=== PATIENT | male | born 1980 | race Caucasian/White ===

== ENCOUNTER 2017-06-18 10:26 | Inpatient (IN) | payer BC, OTHER ==
[~2017-06-18] VITALS: Ht 175.3 cm; Wt 172.0 kg
[~2017-06-18 10:26] MED LIST: MULT-506 PO; OXYC5TAB PO
[2017-06-18] MEDS ORDERED: GI COCKTAIL PO STA (11:14)
[2017-06-18] MEDS ORDERED: SODIUM CHLORIDE 0.9% 1000ML 1,000 ML IV STA (11:14)
[2017-06-18 11:28] LABS: BASO % 0.3 %; BASO ABS # 0.02 K/uL (0-0.2); COMPLETE YES; EOS % 0.8 %; HEMATOCRIT 44.6 % (42-52); IG% 0.4 %; LYMPH % 14.6 %; MEAN CELL VOLUME 82.6 fL (80-100); MEAN CORPUSCULAR HEMOGLOBIN 28.9 pg (25-34); MEAN PLATELET VOLUME 10.6 fL (7.4-10.4); MONO % 9.3 %; NEUT % 74.6 %; PLATELET COUNT 227 K/uL (130-400); WHITE BLOOD COUNT 7.51 K/uL (4.8-10.8)
[2017-06-18 11:33] LABS: URINE APPEARANCE CLEAR (CLEAR); URINE COLOR DK YELLOW; URINE NITRITE NEG (NEG); URINE SPECIFIC GRAVITY 1.023 (1.000-1.030); UROBILINOGEN POS (NEG); ZZUR CULT IF INDIC CLEAN CATCH NO
[2017-06-18 11:44] LABS: MANUAL MICROSCOPIC REQUIRED? NO; REVIEW REQ? NO; URINE BILIRUBIN NEG (NEG)
[2017-06-18 11:49] LABS: BLOOD UREA NITROGEN 15 mg/dl (7-18); BUN/CREATININE RATIO 18.2 (10-20); CALCIUM 9.5 mg/dl (8.5-10.1); CARBON DIOXIDE 26 mmol/L (21-32); CHLORIDE 105 mmol/L (98-107); CREATININE 0.83 mg/dl (0.60-1.40); GLUCOSE 99 mg/dl (70-99); POTASSIUM 4.1 mmol/L (3.5-5.1); SODIUM 136 mmol/L (136-145)
[2017-06-18 12:02] LABS: ALB/GLOB RATIO 1.1 (0.9-2); ALKALINE PHOSPHATASE 110 U/L (45-117); ALT/SGPT 1048 U/L (12-78); AST/SGOT 1203 U/L (15-37)
[2017-06-18] MEDS ORDERED: ALUMINUM/MAGNESIUM SUSP 30 ML UDC ONE (12:09)
[2017-06-18] MEDS ORDERED: LIDOCAINE HCL 2% VISC SOLN 20 ML UDC ONE (12:09)
--- NOTE | 2017-06-18 12:27 | DIAGNOSTIC IMAGING REPORT ---
CHEST 1 VW FRONT-NOT PORTABLE CLINICAL HISTORY: RUQ /MID ABDOMINAL PAIN pain COMPARISON STUDY: No previous studies for comparison. FINDINGS: The bones soft tissues and hemidiaphragms are normal. The cardiomediastinal silhouette is normal. The lungs are clear. The pulmonary vasculature is normal. IMPRESSION: Negative chest. The above report was generated using voice recognition software. It may contain grammatical, syntax or spelling errors. Electronically signed by: Jonh Calix M.D. 06/18/2017 12:26 PM Dictated Date/Time: 06/18/2017 12:25 PM
--- NOTE | 2017-06-18 12:57 | DIAGNOSTIC IMAGING REPORT ---
ABDOMINAL ULTRASOUND, RIGHT UPPER QUADRANT HISTORY: RUQ pain, elevated LFTs, hx cholecystectomy. COMPARISON: Abdomen and pelvis CT 06/09/2016. FINDINGS: Pancreas: The pancreatic head and tail are obscured by overlying bowel gas. The remaining portions of the pancreas are within normal limits. Liver: The liver is echogenic consistent with fatty change. Gallbladder: The gallbladder is surgically absent. CBD: 6 mm Right kidney: No hydronephrosis. IMPRESSION: 1. Cholecystectomy. 2. Normal caliber common bile duct. 3. Hepatic steatosis Electronically signed by: Douglas Mathis M.D. 06/18/2017 12:55 PM Dictated Date/Time: 06/18/2017 12:54 PM
[2017-06-18] MEDS ORDERED: HYDROmorphone INJ 0.5 MG/0.5 ML SYR IV STA (13:22)
--- NOTE | 2017-06-18 14:08 | EMERGENCY ROOM VISIT NOTE ---
History First contact with patient: 11:02 Chief Complaint: ABDOMINAL PAIN Stated Complaint: ABD. PAIN, DIFFICULTY BREATHING Nursing Triage Summary: Patient c/o right and mid upper abdominal pain since last night. Denies n/v/d. History of Present Illness The patient is a 37 year old male who presents to the Emergency Room with complaints of abdominal pain which began last night. The patient states that he has had mid and right upper abdominal pain which began last night. He states that the pain was severe last night and caused him to become sweaty. He had difficulty catching his breath associated with the pain. He states that today, the pain has been constant and dull. He rates the discomfort a 5-6/10. He states there is no sharp pain. He took Tums and Gas-X last night with some relief of the pain. He states that last night, the pain felt similar to when he had his gallbladder removed. He had a cholecystectomy one year ago secondary to cholelithiasis. He states that he had spaghetti and sausage for dinner last night. He did not drink any alcohol last night, but does drink occasionally. He denies nausea, vomiting, changes in bowel movements, fevers or chest pain. He reports a history of hypertension and previous appendectomy but denies any other past medical history. Review of Systems A complete 10 point review of systems was reviewed with the patient with pertinent positives and negatives as per history of present illness. All else were negative. Past Medical/Surgical History Medical Problems: (1) Morbid obesity (2) PTSD (post-traumatic stress disorder) Surgical Problems: (1) History of appendectomy (2) History of vasectomy (3) Hx of cholecystectomy Family History Diabetes mellitus Hypertension Kidney disease Social History Smoking Status: Former Smoker Alcohol Use: occasionally Drug Use: none Marital Status: Housing Status: lives with family Occupation Status: employed Current/Historical Medications No Active Prescriptions or Reported Meds Allergies Coded Allergies: No Known Allergies (Unverified , 06/19/16) Physical Exam Vital Signs Date Time Temp Pulse Resp B/P (MAP) Pulse Ox O2 Delivery O2 Flow Rate FiO2 06/18/17 12:16 75 20 161/94 100 Room Air 06/18/17 10:51 36.6 63 20 170/94 97 Room Air Physical Exam VITALS: Vitals are noted on the nurse's note and reviewed by myself. Vital signs stable. GENERAL: This is a 37-year-old obese male, in no acute distress, nondiaphoretic , well-developed well-nourished. HEART: Regular rate and rhythm without murmurs gallops or rubs. LUNGS: Clear to auscultation bilaterally without wheezes, rales or rhonchi. ABDOMEN: Positive bowel sounds x 4. Soft, tenderness to palpation in the epigastric region and right upper quadrant. No guarding or rebound tenderness. Negative Owen sign. NEURO: Patient was alert and oriented to person place and time. Medical Decision & Procedures ER Provider Diagnostic Interpretation: CHEST 1 VW FRONT-NOT PORTABLE FINDINGS: The bones soft tissues and hemidiaphragms are normal. The cardiomediastinal silhouette is normal. The lungs are clear. The pulmonary vasculature is normal. IMPRESSION: Negative chest. ABDOMINAL ULTRASOUND, RIGHT UPPER QUADRANT FINDINGS: Pancreas: The pancreatic head and tail are obscured by overlying bowel gas. The remaining portions of the pancreas are within normal limits. Liver: The liver is echogenic consistent with fatty change. Gallbladder: The gallbladder is surgically absent. CBD: 6 mm Right kidney: No hydronephrosis. IMPRESSION: 1. Cholecystectomy. 2. Normal caliber common bile duct. 3. Hepatic steatosis Laboratory Results 06/18/17 11:15 Red Blood Count 5.40, Mean Corpuscular Volume 82.6, Mean Corpuscular Hemoglobin 28.9, Mean Corpuscular Hemoglobin Concent 35.0, Mean Platelet Volume 10.6, Neutrophils (%) (Auto) 74.6, Lymphocytes (%) (Auto) 14.6, Monocytes (%) (Auto) 9.3, Eosinophils (%) (Auto) 0.8, Basophils (%) (Auto) 0.3, Neutrophils # (Auto) 5.60, Lymphocytes # (Auto) 1.10, Monocytes # (Auto) 0.70, Eosinophils # (Auto) 0.06, Basophils # (Auto) 0.02 06/18/17 11:15 Test 06/18/17 11:00 06/18/17 11:15 Urine Color DK YELLOW Urine Appearance CLEAR (CLEAR) Urine pH 7.0 (4.5-7.5) Urine Specific [place] 1.023 (1.000-1.030) Urine Protein NEG (NEG) Urine Glucose (UA) NEG (NEG) Urine Ketones NEG (NEG) Urine Occult Blood NEG (NEG) Urine Nitrite NEG (NEG) Urine Bilirubin NEG (NEG) Urine Urobilinogen POS (NEG) Urine Leukocyte Esterase NEG (NEG) Urine Opiates Screen NEG (NEG) Urine Methadone, Qualitative NEG (NEG) Urine Barbiturates NEG (NEG) Urine Phencyclidine (PCP) Level NEG (NEG) Ur Amphetamine/Methamphetamine NEG (NEG) MDMA (Ecstasy) Screen NEG (NEG) Urine Benzodiazepines Screen NEG (NEG) Urine Cocaine Metabolite NEG (NEG) Urine Marijuana (THC) NEG (NEG) White Blood Count 7.51 K/uL (4.8-10.8) Red Blood Count 5.40 M/uL (4.7-6.1) Hemoglobin 15.6 g/dL (14.0-18.0) Hematocrit 44.6 % (42-52) Mean Corpuscular Volume 82.6 fL (80-100) Mean Corpuscular Hemoglobin 28.9 pg (25-34) Mean Corpuscular Hemoglobin Concent 35.0 g/dl (32-36) Platelet Count 227 K/uL (130-400) Mean Platelet Volume 10.6 fL (7.4-10.4) Neutrophils (%) (Auto) 74.6 % Lymphocytes (%) (Auto) 14.6 % Monocytes (%) (Auto) 9.3 % Eosinophils (%) (Auto) 0.8 % Basophils (%) (Auto) 0.3 % Neutrophils # (Auto) 5.60 K/uL (1.4-6.5) Lymphocytes # (Auto) 1.10 K/uL (1.2-3.4) Monocytes # (Auto) 0.70 K/uL (0.11-0.59) Eosinophils # (Auto) 0.06 K/uL (0-0.5) Basophils # (Auto) 0.02 K/uL (0-0.2) RDW Standard Deviation 41.0 fL (36.4-46.3) RDW Coefficient of Variation 13.7 % (11.5-14.5) Immature Granulocyte % (Auto) 0.4 % Immature Granulocyte # (Auto) 0.03 K/uL (0.00-0.02) Anion Gap 5.0 mmol/L (3-11) Est Creatinine Clear Calc Drug Dose 194.0 ml/min Estimated GFR () 132.1 Estimated GFR (Non- 114.0 BUN/Creatinine Ratio 18.2 (10-20) Calcium Level 9.5 mg/dl (8.5-10.1) Total Bilirubin 4.0 mg/dl (0.2-1) Aspartate Amino Transf (AST/SGOT) 1203 U/L (15-37) Alanine Aminotransferase (ALT/SGPT) 1048 U/L (12-78) Alkaline Phosphatase 110 U/L (45-117) Troponin I < 0.015 ng/ml (0-0.045) Total Protein 7.8 gm/dl (6.4-8.2) Albumin 4.0 gm/dl (3.4-5.0) Globulin 3.8 gm/dl (2.5-4.0) Albumin/Globulin Ratio 1.1 (0.9-2) Lipase 134 U/L (73-393) Medications Administered Medications (Trade) Dose Ordered Sig/Huyen Route Start Time Stop Time Status Last Admin Dose Admin Sodium Chloride 1,000 ml @ 999 mls/hr Q1H1M STAT IV 06/18/17 11:14 06/18/17 12:14 DC 06/18/17 11:20 999 MLS/HR Lidocaine HCl (Viscous Lidocaine 2% Soln) 20 ml STK-MED ONCE .ROUTE 06/18/17 12:09 06/18/17 12:10 DC 06/18/17 12:13 10 ML Al Hydroxide/Mg Hydroxide (Maalox Susp) 30 ml STK-MED ONCE .ROUTE 06/18/17 12:09 06/18/17 12:10 DC 06/18/17 12:12 30 ML Hydromorphone HCl (Dilaudid Inj) 0.5 mg NOW STAT IV 06/18/17 13:22 06/18/17 13:23 DC 06/18/17 13:57 0.5 MG ECG Rate (beats per minute): 61 Rhythm: normal sinus Findings: no acute ischemic change, no ectopy Change: no significant change ED Course The patient was evaluated as above. Labs were drawn and IV access was obtained. Patient was medicated with 1 L normal saline solution and a GI cocktail. Imaging studies were performed and read by radiology as above. Patient was reevaluated and findings were discussed with the patient. He agrees to admission. He requested something more for pain and was given 0.5 mg Dilaudid IV. Case was discussed with the [facility], AMANDA Da Silva. She agreed to evaluate the patient for admission. Medical Decision Differential diagnosis includes peptic ulcer disease, gastritis, choledocholithiasis, hepatitis, pancreatitis, bowel obstruction, among others. The patient is a 37-year-old male who presents today complaining of right upper quadrant and epigastric abdominal pain. Labs revealed no leukocytosis. Bilirubin was significantly elevated at 4.0. AST was elevated at 1203, ALT elevated at 1048. These are new findings for the patient. He has no history of hepatitis. Lipase is normal. Ultrasound of the right upper quadrant was performed and showed a normal common bile duct and no other acute abnormalities. Patient will return her admission to rule out choledocholithiasis versus other cause of elevated LFTs. He was agreeable to this. He will be admitted by the [facility] service for further evaluation. Blood Pressure Screening: Patient was found to have a slightly elevated blood pressure due to circumstances. I do not believe that the patient requires hypertension monitoring. Medication reconciliation: I attest that I have personally reviewed the patient 's current medication list. Impression Primary Impression: RUQ abdominal pain Additional Impression: Elevated LFTs Departure Information Dispostion Admitted as an inpatient Condition GOOD Prescriptions No Active Prescriptions or Reported Meds Referrals Robert Strauss M.D. (PCP) Patient Instructions [facility] Problem Qualifiers
--- NOTE | 2017-06-18 14:42 | Gastrointestinal Consultation ---
Gastrointestinal Consultation Date of Consultation: Jun 18, 2017 Attending Physician: AMANDA Da Silva Consulting Physician: Vincent Arechiga Reason for Consultation: Elevated LFTs History of Present Illness Patient is a 37 year old male w hx of PTSD, hepatic steatosis, bone cyst, morbid obesity who presented to ED w c/o RUQ abd pain which started last night 2 hrs after eating dinner. He was having sausage and spaghetti, felt RUQ abd pain, though he had indigestion and took TUMS. Pain similar to when he had gallbladder disease. He is 1 yr s/p cholecystectomy. He denies any associated symptoms of fever, chills, CP, SOB though felt he couldn't take a deep breath as this may aggravate the RUQ abd pain. Denies any n/v, changes in BM habits. + increased swelling on lower legs, denies any jaundice, rashes, tick bites. Upon eval, labs showed elevated Tbili of 4, AST/ALT 1200, 1000, AP 121, normal Lipase. RUQ u/s showed s/p cholecystectomy, CBD 6mm, hepatic steatosis, CXR normal. He only takes MVI on daily basis, denies any other dietary supplements. No recently travel, dietary changes, sick contact. Denies regular APAP uses. Quit tobacco years ago, drinks about 3-6oz of whiskey daily, hx of marijuana years ago, hx of Hep C sexual partner. Past Medical/Surgical History Medical Problems: (1) Acute abdominal pain in right upper quadrant Status: Acute (2) RUQ abdominal pain Status: Acute Past Medical History: See above Past Surgical History: Appendectomy Vasectomy Cholecystectomy Family History Diabetes mellitus Hypertension Kidney disease Social History Smoking Status: Former Smoker Alcohol Use: occasionally Drug Use: none Marital Status: Housing Status: lives with family Occupation Status: employed Allergies Coded Allergies: No Known Allergies (Unverified , 06/19/16) Current Medications Home Meds and Scripts Medications Dose Route/Sig Max Daily Dose Days Date Category No Active Prescriptions or Reported Medications Rx Review of Systems Constitutional: No fever, No chills Respiratory: No cough, No shortness of breath Cardiac: No chest pain Abdomen: + pain, No nausea, No vomiting, No diarrhea, No constipation, No GI bleeding Endo: No fatigue Skin: No rash, No itch, No jaundice Physical Exam Date Time Temp Pulse Resp B/P (MAP) Pulse Ox O2 Delivery O2 Flow Rate FiO2 06/18/17 13:59 62 20 145/91 100 Room Air 06/18/17 12:16 75 20 161/94 100 Room Air 06/18/17 10:51 36.6 63 20 170/94 97 Room Air General Appearance: no apparent distress, + obese Eyes: normal inspection, EOMI Neck: supple, no JVD, trachea midline Respiratory/Chest: normal breath sounds, no respiratory distress, no accessory muscle use Cardiovascular: regular rate, rhythm, no gallop, no murmur Abdomen: normal bowel sounds, non tender (mild discomfort w deep palpation of abd on RUQ area per pt.), soft Extremities: normal inspection, no calf tenderness, + swelling (mild lower leg non pitting edema ) Neurologic/Psych: alert, normal mood/affect, oriented x 3 Skin: normal color, no jaundice, no rash Laboratory Results Last 24 Hours Test 06/18/17 11:00 06/18/17 11:15 06/18/17 13:54 06/18/17 13:58 Urine Color DK YELLOW Urine Appearance CLEAR Urine pH 7.0 Urine Specific [place] 1.023 Urine Protein NEG Urine Glucose (UA) NEG Urine Ketones NEG Urine Occult Blood NEG Urine Nitrite NEG Urine Bilirubin NEG Urine Urobilinogen POS Urine Leukocyte Esterase NEG White Blood Count 7.51 K/uL Red Blood Count 5.40 M/uL Hemoglobin 15.6 g/dL Hematocrit 44.6 % Mean Corpuscular Volume 82.6 fL Mean Corpuscular Hemoglobin 28.9 pg Mean Corpuscular Hemoglobin Concent 35.0 g/dl Platelet Count 227 K/uL Mean Platelet Volume 10.6 fL Neutrophils (%) (Auto) 74.6 % Lymphocytes (%) (Auto) 14.6 % Monocytes (%) (Auto) 9.3 % Eosinophils (%) (Auto) 0.8 % Basophils (%) (Auto) 0.3 % Neutrophils # (Auto) 5.60 K/uL Lymphocytes # (Auto) 1.10 K/uL Monocytes # (Auto) 0.70 K/uL Eosinophils # (Auto) 0.06 K/uL Basophils # (Auto) 0.02 K/uL RDW Standard Deviation 41.0 fL RDW Coefficient of Variation 13.7 % Immature Granulocyte % (Auto) 0.4 % Immature Granulocyte # (Auto) 0.03 K/uL Sodium Level 136 mmol/L Potassium Level 4.1 mmol/L Chloride Level 105 mmol/L Carbon Dioxide Level 26 mmol/L Anion Gap 5.0 mmol/L Blood Urea Nitrogen 15 mg/dl Creatinine 0.83 mg/dl Est Creatinine Clear Calc Drug Dose 194.0 ml/min Estimated GFR () 132.1 Estimated GFR (Non- 114.0 BUN/Creatinine Ratio 18.2 Random Glucose 99 mg/dl Calcium Level 9.5 mg/dl Total Bilirubin 4.0 mg/dl Aspartate Amino Transf (AST/SGOT) 1203 U/L Alanine Aminotransferase (ALT/SGPT) 1048 U/L Alkaline Phosphatase 110 U/L Troponin I < 0.015 ng/ml Total Protein 7.8 gm/dl Albumin 4.0 gm/dl Globulin 3.8 gm/dl Albumin/Globulin Ratio 1.1 Lipase 134 U/L Impression Patient is a 37 year old male w RUQ abd pain last night 2 hrs after dinner. Hx of cholecystectomy 1 yr ago. LFTs noted to be elevated, specifically Tbili 4, transaminases in 1000s, normal AP, lipase. U/S grossly unremarkable w CBD mm, + hepatic steatosis. DDx: acute vs viral hepatitis, biliary stone, ETOH hepatitis. Plan - Obtain MRCP but suspect less likely has choledocholithiasis given s/p cholecystectomy, normal AP, CBD - Urine toxicology w APAP level - Acute hepatitis level. Add EBV and CMV screens. - AILYN,, anti smooth muscle antibody - Monitor LFTs. Addendum: Will keep pt NPO today and after midnight for possible EUS/ERCP tomorrow w Dr. Goss in OR. Case tenatively booked as an add on case for 2PM on 06/19. ATtg add: I interviewed and examined pt, reviewed chart and labs. Pt s/p marcela , prv bnl LFT's, morbid obesity and regular etoh ue, now admit with abrupt onset of RUQ pain similar to prior GB attack, labs show markedly elevated transaminases and bili; uls without stones. Histroy suggestive of stone disease. Ddx includes DILI, although he denies any medications/supplements; AIH ; viral hep, although pt denies prodromal symptoms. Plan MRCP, and possible EUS /ERCP or liver bx pending results of further w/u.
[2017-06-18 14:47] LABS: BENZODIAZEPINE, URINE NEG (NEG); COCAINE,URINE NEG (NEG); PHENCYCLIDINE, URINE NEG (NEG)
[2017-06-18] MEDS ORDERED: LORAZEPAM 2 MG/ML 1 ML VIAL IV ONE (15:00)
[2017-06-18 15:13] LABS: PROTHROMBIN TIME (PATIENT) 10.6 SECONDS (9.0-12.0)
--- NOTE | 2017-06-18 16:10 | History and Physical ---
History & Physical Date & Time of Service: Jun 18, 2017 ~ 13:30 Chief Complaint: RUQ Abdominal Pain Primary Care Physician: Robert Strauss M.D. History of Present Illness Source: patient 37 year old male who presents to the ER with RUQ pain. Patient reports pain come on suddenly last evening. He reports the pain as located in the RUQ and describes it as an ache. He took some OTC antacids last night and got minimal relief. He reports a normal bowel movement yesterday. He denies nausea, vomiting , or diarrhea. No fevers or chills. He feels as though his abdomen is a little more distended and he has lower extremity edema. The abdominal distention makes him feel a little short of breath with exertion. No chest pain. Patient does drink alcohol. He reports heavy alcohol use for 10 years, cut back for about 1 year, and for the past 2 weeks has been having 2-3 drinks per night. He reports having a girlfriend several years ago that was Hep C positive. He denies any recent travel or sick contacts. He denies lightheadedness, dizziness, diaphoresis, or syncopal events. He reports his urine has been much darker in color today. No dysuria. In the ER, patient was found to have elevated LFTs (t. bili 4.0, AST and ALT > 1,000, and normal alk phos). RUQ US unremarkable. Patient was treated with IVF, GI cocktail, and IV Dilaudid. Past Medical/Surgical History Medical Problems: (1) Morbid obesity Status: Chronic (2) PTSD (post-traumatic stress disorder) Status: Chronic Surgical Problems: (1) History of appendectomy Status: Chronic (2) History of vasectomy Status: Chronic (3) Hx of cholecystectomy Status: Chronic Family History Hypertension MOTHER Social History Smoking Status: Former Smoker Alcohol Use: 2-3 drinks/night Drug Use: none Marital Status: Occupational Status: employed Immunizations History of Influenza Vaccine: Yes Influenza Vaccine Date: Sep 20, 2016 History of Tetanus Vaccine?: Yes Tetanus Immunization Date: Nov 02, 2012 Allergies Coded Allergies: No Known Allergies (Unverified , 06/19/16) Home Medications No Active Prescriptions or Reported Meds Review of Systems ROS per HPI, all other systems reviewed and negative Physical Exam Vital Signs Date Time Temp Pulse Resp B/P (MAP) Pulse Ox O2 Delivery O2 Flow Rate FiO2 06/18/17 13:59 62 20 145/91 100 Room Air 06/18/17 12:16 75 20 161/94 100 Room Air 06/18/17 10:51 36.6 63 20 170/94 97 Room Air General Appearance: no apparent distress Head: normocephalic Eyes: normal inspection, sclerae normal ENT: hearing grossly normal Neck: supple, no JVD Respiratory/Chest: lungs clear, normal breath sounds, no respiratory distress Cardiovascular: regular rate, rhythm, normal peripheral pulses, + pertinent finding (trace edema BLLE) Abdomen/GI: normal bowel sounds, soft, + pertinent finding (reports RUQ pain however not worse with palpation) Extremities/Musculoskelatal: normal inspection, no calf tenderness Neurologic/Psych: no motor/sensory deficits, alert, normal mood/affect, oriented x 3 Skin: normal color, warm/dry Diagnostics Laboratory Results Results Past 24 Hours Test 06/18/17 11:00 06/18/17 11:15 06/18/17 14:39 06/18/17 14:40 Range/Units Urine Color DK YELLOW Urine Appearance CLEAR CLEAR Urine pH 7.0 4.5-7.5 Urine Specific [place] 1.023 1.000-1.030 Urine Protein NEG NEG Urine Glucose (UA) NEG NEG Urine Ketones NEG NEG Urine Occult Blood NEG NEG Urine Nitrite NEG NEG Urine Bilirubin NEG NEG Urine Urobilinogen POS NEG Urine Leukocyte Esterase NEG NEG Urine Opiates Screen NEG NEG Urine Methadone, Qualitative NEG NEG Urine Barbiturates NEG NEG Urine Phencyclidine (PCP) Level NEG NEG Ur Amphetamine/Methamphetamine NEG NEG MDMA (Ecstasy) Screen NEG NEG Urine Benzodiazepines Screen NEG NEG Urine Cocaine Metabolite NEG NEG Urine Marijuana (THC) NEG NEG White Blood Count 7.51 4.8-10.8 K/uL Red Blood Count 5.40 4.7-6.1 M/uL Hemoglobin 15.6 14.0-18.0 g/dL Hematocrit 44.6 42-52 % Mean Corpuscular Volume 82.6 80-100 fL Mean Corpuscular Hemoglobin 28.9 25-34 pg Mean Corpuscular Hemoglobin Concent 35.0 32-36 g/dl Platelet Count 227 130-400 K/uL Mean Platelet Volume 10.6 7.4-10.4 fL Neutrophils (%) (Auto) 74.6 % Lymphocytes (%) (Auto) 14.6 % Monocytes (%) (Auto) 9.3 % Eosinophils (%) (Auto) 0.8 % Basophils (%) (Auto) 0.3 % Neutrophils # (Auto) 5.60 1.4-6.5 K/uL Lymphocytes # (Auto) 1.10 1.2-3.4 K/uL Monocytes # (Auto) 0.70 0.11-0.59 K/uL Eosinophils # (Auto) 0.06 0-0.5 K/uL Basophils # (Auto) 0.02 0-0.2 K/uL RDW Standard Deviation 41.0 36.4-46.3 fL RDW Coefficient of Variation 13.7 11.5-14.5 % Immature Granulocyte % (Auto) 0.4 % Immature Granulocyte # (Auto) 0.03 0.00-0.02 K/uL Sodium Level 136 136-145 mmol/L Potassium Level 4.1 3.5-5.1 mmol/L Chloride Level 105 98-107 mmol/L Carbon Dioxide Level 26 21-32 mmol/L Anion Gap 5.0 3-11 mmol/L Blood Urea Nitrogen 15 7-18 mg/dl Creatinine 0.83 0.60-1.40 mg/dl Est Creatinine Clear Calc Drug Dose 194.0 ml/min Estimated GFR () 132.1 Estimated GFR (Non- 114.0 BUN/Creatinine Ratio 18.2 10-20 Random Glucose 99 70-99 mg/dl Calcium Level 9.5 8.5-10.1 mg/dl Total Bilirubin 4.0 0.2-1 mg/dl Aspartate Amino Transf (AST/SGOT) 1203 15-37 U/L Alanine Aminotransferase (ALT/SGPT) 1048 12-78 U/L Alkaline Phosphatase 110 45-117 U/L Troponin I < 0.015 0-0.045 ng/ml Total Protein 7.8 6.4-8.2 gm/dl Albumin 4.0 3.4-5.0 gm/dl Globulin 3.8 2.5-4.0 gm/dl Albumin/Globulin Ratio 1.1 0.9-2 Lipase 134 73-393 U/L Prothrombin Time 10.6 9.0-12.0 SECONDS Prothromb Time International Ratio 1.0 0.9-1.1 Activated Partial Thromboplast Time 25.6 21.0-31.0 SECONDS Partial Thromboplastin Ratio 1.0 Ethyl Alcohol mg/dL < 3.0 0-3 mg/dl Hepatitis B Surface Antigen NEG NEG Test 06/18/17 14:42 Range/Units Diagnostic Radiology RUQ US IMPRESSION: 1. Cholecystectomy. 2. Normal caliber common bile duct. 3. Hepatic steatosis CXR IMPRESSION: Negative chest. Impression Assessment and Plan ELEVATED LFTs - admit to med/surg - patient presenting with RUQ pain x 1 day; in the ED, found to have T. bili 4.0, AST 1203, ALT 1048, alk phos 110; other labs unremarkable - patient is s/p cholecystectomy 06/2016 - RUQ US in ED unremarkable - choledocholithiasis would be considered less likely due to normal CBD on US, normal alk phos, and hx cholecystectomy however, due to sudden onset of pain, will check MRCP - also consider alcoholic hepatitis - normal coags and low DF so no role for steroids at this time; noted normal lipase - hepatitis panel and UDS ordered - NPO for now - case discussed with AMANDA Najera ALCOHOL ABUSE - patient reports heavy ETOH use for 10 years, cut back for about 1 year, and started drinking daily about 2 weeks ago (2-3 drinks/night) - ETOH level normal - monitor for signs of withdrawal - no problems with withdrawal in the past DVT PROPHYLAXIS - SCDs DISPO - In my clinical judgment this beneficiary meets acute admission criteria, established by [facility], that includes being hospitalized through two midnights. Attending Note: Patient is a 37 yr male with no significant PMH other than Alcohol abuse presents with history of sudden onset of RUQ abdominal pain, constant, non radiating, denies any association with food intake and no relief with OTC pain meds. Denies nausea, vomiting, diarrhea, fever, chills. Had cholecystectomy about 1 yr ago. Admits to drinking Whisky (2-3 drinks) daily. Blood work showed transaminitis but USD of abdomen showed hepatic steatosis. Physical Exam: Vitals signs as noted above General Appearance:Obese, no apparent distress Head: normocephalic, Atraumatic Eyes: normal inspection, EOMI, PERRL Neck: supple, Trachea midline Respiratory/Chest: Normal breath sounds, CTA Cardiovascular: S1, S2, No murmur Abdomen/GI:Soft, Non tender, Bowel sounds present Extremities/Musculoskelatal:normal inspection, no edema Neurologic/Psych:AAOX3, grossly no focal neurological deficits Skin:normal color,warm Assessment and Plan: RUQ Abdominal pain Transaminitis: S/P cholecystectomy 06/2016 Unclear etiology Abdominal USD:hepatic steatosis Planned for MRCP today GI consulted Pain control IV fluids Hepatitis screen pending Lipase:wnl I personally reviewed the record. Patient is interviewed and examined at bedside. Patient's care is coordinated with Whit Ovalle [facility]. Please refer to the documentation above for details of patient's presentation and for discussion of other issues. VTE Prophylaxis VTE Risk Assessment Done? Y/N: Yes Risk Level: Moderate
[2017-06-18 17:00] VITALS: BP 145/98; PULSE 65; TEMP 36.8; O2SAT 98; Ht 175.3 cm; Wt 172.0 kg
--- NOTE | 2017-06-18 17:19 | Anesthesiology Progress Note ---
Anesthesia Progress Note Date of Service Jun 18, 2017. Progress Notes Pt is scheduled for EUS/ERCP on 06/02/17. Pt is a 37M with morbid obesity, GAYE, PTSD, heavy ETOH use, former smoker, ?hep C. Pt has good functional status. Labwork, EKG and CXR were reviewed. Pt is an acceptable candidate for general anesthesia. History and consent were obtained by the TRIPPER.
[2017-06-18] MEDS: D5W AND NSS 1,000 ML IV SCH (18:19)
[2017-06-18] MEDS: MoRPHine SULFATE 4 MG/ML 1 ML CARP\\VIAL IV PRN (18:19)
[2017-06-18] MEDS: ONDANSETRON INJ 2 MG/ML 2 ML VIAL IV PRN (21:18)
[2017-06-18] MEDS ORDERED: LORAZEPAM INJ 1 MG in SYRINGE 0.5 ML IV SCH (23:00)
[2017-06-19 01:13] VITALS: BP 120/75; PULSE 66; TEMP 36.9; O2SAT 95
[2017-06-19] MEDS: MoRPHine SULFATE 4 MG/ML 1 ML CARP\\VIAL IV PRN ×3 (01:21→22:37)
[2017-06-19] MEDS: D5W AND NSS 1,000 ML IV SCH (04:16)
--- NOTE | 2017-06-19 06:48 | DIAGNOSTIC IMAGING REPORT ---
MRCP CLINICAL HISTORY: Right upper quadrant abdominal pain. Elevated LFTs. COMPARISON STUDY: Biliary ultrasound dated 06/18/2017 FINDINGS: Spleen is borderline enlarged. The gallbladder surgically absent. The common bile duct measures 5 mm. The intrahepatic ducts are the upper limits of normal in size. No ductal filling defects are visualized. There is no pancreatic ductal dilatation. IMPRESSION: 1. No evidence of significant pancreatic or biliary ductal dilatation 2. There are no filling defects to indicate ductal calculi 3. Surgically absent gallbladder Electronically signed by: Jesús Ty M.D. 06/19/2017 6:47 AM Dictated Date/Time: 06/19/2017 6:44 AM
[2017-06-19] MEDS ORDERED: INDOMETHACIN 50 MG SUPP PR ONE ×2 (07:00→15:00)
[2017-06-19 07:19] VITALS: BP 106/71; PULSE 59; TEMP 36.6; O2SAT 96
[2017-06-19] MEDS: ONDANSETRON INJ 2 MG/ML 2 ML VIAL IV PRN ×2 (08:37→22:36)
--- NOTE | 2017-06-19 10:58 | DIAGNOSTIC IMAGING REPORT ---
DUPLEX ULTRASOUND PORTAL HEPATIC VEINS CLINICAL HISTORY: Assess for portal vein thrombosis. COMPARISON STUDY: MRCP 06/19/2017. FINDINGS: The portal, hepatic, and splenic veins are widely patent and demonstrate normal direction of flow. The IVC is also patent. IMPRESSION: No evidence for portal vein thrombosis. Electronically signed by: Douglas Mathis M.D. 06/19/2017 10:56 AM Dictated Date/Time: 06/19/2017 10:55 AM
--- NOTE | 2017-06-19 11:08 | Gastroenterology Progress Note ---
Progress Note Date of Service: Jun 19, 2017 Subjective Pt evaluation today including: conversation w/ patient, physical exam, chart review, lab review, review of studies, review of inpatient medication list Patient is a 37 year old male who was admitted yesterday with RUQ pain ( continues and is described as similar to when he underwent cholecystectomy a yr ago) and nausea. He appears well, is hemodynamically stable, describes continued RUQ pain and is "hungry." LFTs on arrival: Tbili of 4, AST/ALT 1200, 1000, AP 121, normal Lipase. LFTs today increasing: T Binu 6.8, dir 3.6; AST/ALT 733/1142 AP 130, no leukocytosis. Imaging: RUQ u/s showed s/p cholecystectomy, CBD 6mm, hepatic steatosis, CXR normal. MRCP with normal CBD at 5mm, no filling defects. Port vein doppler US pending. Hep B/C (-); [place] (-), other serology pending. Review of Systems Constitutional: No fever Respiratory: No cough Cardiac: No chest pain Abdomen: + pain, + nausea, No vomiting, No diarrhea, No constipation, No GI bleeding, No dysphagia, No odynophagia Musculoskeletal: No joint pain Male : No dysuria Neuro: No memory loss Psych: No depression symptoms Heme: No abnormal bleeding/bruising Endo: No fatigue Medications Current Inpatient Medications Medications (Trade) Dose Ordered Sig/Huyen Route Start Time Stop Time Status Last Admin Dose Admin Ondansetron HCl (Zofran Inj) 4 mg Q6H PRN IV 06/18/17 14:00 07/18/17 13:59 06/19/17 08:37 4 MG Morphine Sulfate (MoRPHine SULFATE INJ) 4 mg Q4H PRN IV 06/18/17 14:15 07/02/17 14:14 06/19/17 08:32 4 MG Dextrose/Sodium Chloride 1,000 ml @ 80 mls/hr [id number] IV 06/18/17 15:15 07/18/17 15:14 06/19/17 04:16 80 MLS/HR Objective Vital Signs Date Time Temp Pulse Resp B/P (MAP) Pulse Ox O2 Delivery O2 Flow Rate FiO2 06/19/17 08:00 Room Air 06/19/17 07:19 36.6 59 20 106/71 (83) 96 Room Air 06/19/17 01:13 36.9 66 18 120/75 (90) 95 Room Air 06/19/17 00:00 Room Air 06/18/17 17:00 36.8 65 16 145/98 98 Room Air 06/18/17 16:05 62 16 131/80 98 Room Air 06/18/17 13:59 62 20 145/91 100 Room Air 06/18/17 12:16 75 20 161/94 100 Room Air Physical Exam General Appearance: no apparent distress, + obese Neck: thyroid normal, no JVD Respiratory/Chest: lungs clear Cardiovascular: regular rate, rhythm, no JVD, no murmur Abdomen: soft, + tenderness (mild to moderate, RUQ) Extremities: + pertinent finding (trace bilat pedal edema) Neurologic/Psych: alert, normal mood/affect, oriented x 3 Skin: + jaundice (mild) Laboratory Results Last 24 Hours Test 06/18/17 11:00 06/18/17 11:15 06/18/17 14:39 06/18/17 14:40 Urine Color DK YELLOW Urine Appearance CLEAR Urine pH 7.0 Urine Specific [place] 1.023 Urine Protein NEG Urine Glucose (UA) NEG Urine Ketones NEG Urine Occult Blood NEG Urine Nitrite NEG Urine Bilirubin NEG Urine Urobilinogen POS Urine Leukocyte Esterase NEG Urine Opiates Screen NEG Urine Methadone, Qualitative NEG Urine Barbiturates NEG Urine Phencyclidine (PCP) Level NEG Ur Amphetamine/Methamphetamine NEG MDMA (Ecstasy) Screen NEG Urine Benzodiazepines Screen NEG Urine Cocaine Metabolite NEG Urine Marijuana (THC) NEG White Blood Count 7.51 K/uL Red Blood Count 5.40 M/uL Hemoglobin 15.6 g/dL Hematocrit 44.6 % Mean Corpuscular Volume 82.6 fL Mean Corpuscular Hemoglobin 28.9 pg Mean Corpuscular Hemoglobin Concent 35.0 g/dl Platelet Count 227 K/uL Mean Platelet Volume 10.6 fL Neutrophils (%) (Auto) 74.6 % Lymphocytes (%) (Auto) 14.6 % Monocytes (%) (Auto) 9.3 % Eosinophils (%) (Auto) 0.8 % Basophils (%) (Auto) 0.3 % Neutrophils # (Auto) 5.60 K/uL Lymphocytes # (Auto) 1.10 K/uL Monocytes # (Auto) 0.70 K/uL Eosinophils # (Auto) 0.06 K/uL Basophils # (Auto) 0.02 K/uL RDW Standard Deviation 41.0 fL RDW Coefficient of Variation 13.7 % Immature Granulocyte % (Auto) 0.4 % Immature Granulocyte # (Auto) 0.03 K/uL Sodium Level 136 mmol/L Potassium Level 4.1 mmol/L Chloride Level 105 mmol/L Carbon Dioxide Level 26 mmol/L Anion Gap 5.0 mmol/L Blood Urea Nitrogen 15 mg/dl Creatinine 0.83 mg/dl Est Creatinine Clear Calc Drug Dose 194.0 ml/min Estimated GFR () 132.1 Estimated GFR (Non- 114.0 BUN/Creatinine Ratio 18.2 Random Glucose 99 mg/dl Calcium Level 9.5 mg/dl Total Bilirubin 4.0 mg/dl Aspartate Amino Transf (AST/SGOT) 1203 U/L Alanine Aminotransferase (ALT/SGPT) 1048 U/L Alkaline Phosphatase 110 U/L Troponin I < 0.015 ng/ml Total Protein 7.8 gm/dl Albumin 4.0 gm/dl Globulin 3.8 gm/dl Albumin/Globulin Ratio 1.1 Lipase 134 U/L Prothrombin Time 10.6 SECONDS Prothromb Time International Ratio 1.0 Activated Partial Thromboplast Time 25.6 SECONDS Partial Thromboplastin Ratio 1.0 Ethyl Alcohol mg/dL < 3.0 mg/dl Hepatitis B Surface Antigen NEG Hepatitis C Antibody NEG Monoscreen NEG Test 06/19/17 09:04 Total Bilirubin 6.8 mg/dl Direct Bilirubin 3.6 mg/dl Aspartate Amino Transf (AST/SGOT) 733 U/L Alanine Aminotransferase (ALT/SGPT) 1142 U/L Alkaline Phosphatase 130 U/L Total Protein 6.8 gm/dl Albumin 3.5 gm/dl Folate 13.75 ng/mL Assessment and Plan Mr. Alva is a 37 yr old male with RUQ pain, elevated and increasing LFTs, though imaging w/o bile duct abnormalities, hx is strongly suggestive of microlithiasis. Viral etiology is considered but negative thus far and he denies other viral symptoms. No hx of increased alcohol intake. Though obese, and fatty liver on US, would not expect a dramatic transaminitis with non alcoholic fatty liver disease. Plan: 1. Will review portal vein doppler US when available. 2. Will plan for EUS, possible ERCP this afternoon. Attg addendum: I interviewed and examined pt, reviewed chart and labs. Pt with persistent abd pain, requiring morphine this am; he also has increase in bilirubin. MRCP without ductal obstruction, and uls without PVT. Viral serologies pending. His history of abrupt onset of pain, associated with abnl LFT's, seems very suggestive of stone disease. There is no prodrome to suggest viral hep. Will plan EUS with possible ERCP, or liver bx if no ductal obstruction is seen.
--- NOTE | 2017-06-19 14:07 | Endo History and Physical ---
History & Physical Date of Service: Jun 19, 2017. Chief Complaint: Abdominal pain Referring Physician: History of Present Illness Patient presented with ruq pain and a significant elevation of LAES. Referred for EUS and possible ERCP or liver biopsy. Past Medical History Cholelithiasis PTSD Obesity Past Surgical History Hx Cardiac Surgery: No Hx Abdominal Surgery: Yes (Gall bladder removed 2015, Appendix 1989) Hx Post-Op Nausea and Vomiting: No Hx Cancer Surgery: No Hx Thoracic Surgery: No Hx Orthopedic: No Hx Urinary Tract Surgery: Yes (Visectomy 2014) Cholecystectomy (2015) Appendctomy Vasectomy Social History Smoking Status: Light Tobacco Smoker Hx Substance Use: No Hx Alcohol Use: Yes (3 drinks/night) Allergies Coded Allergies: No Known Allergies (Unverified , 06/19/16) Current Medications Reported Home Medications Medications Dose Route/Sig Max Daily Dose Days Date Category No Active Prescriptions or Reported Medications Rx Vital Signs Weight (Kilograms): 172.000 Height (Feet): 5 Height (Inches): 9.00 Date Time Temp Pulse Resp B/P (MAP) Pulse Ox O2 Delivery O2 Flow Rate FiO2 06/19/17 08:00 Room Air 06/19/17 07:19 36.6 59 20 106/71 (83) 96 Room Air 06/19/17 01:13 36.9 66 18 120/75 (90) 95 Room Air 06/19/17 00:00 Room Air 06/18/17 17:00 36.8 65 16 145/98 98 Room Air 06/18/17 16:05 62 16 131/80 98 Room Air Physical Exam General Appearance: no apparent distress Respiratory/Chest: Auscultation: breath sounds normal Cardiovascular: Heart Auscultation: RRR Abdomen: Inspection & Palpation: soft, RUQ tenderness Assessment and Plan Patient referred for eus with possible liver biopsy or ERCP. He presented with ruq pain s/p cholecystectomy 1 year ago for cholelithiasis. We have discussed the risks to include bleeding, infection, perforation, pain, pancreatitis, failed biliary cannulation and hematoma Plan EGD EUS ERCP Indocin 100 mg if ERCP performed LR 1 liter during procedure
[2017-06-19] MEDS ORDERED: PROPOFOL IV EMULSION 10 MG/ML 20 ML VIAL IV ONE (14:29)
[2017-06-19] MEDS ORDERED: MIDAZOLAM HCL 1 MG/ML 2ML VIAL ONE (14:29)
[2017-06-19] MEDS ORDERED: LIDOCAINE HCL 2% 2 ML VIAL (20MG/ML) ONE (14:29)
[2017-06-19] MEDS ORDERED: FENTANYL CITRATE INJ 50 MCG/1 ML 2 ML VIAL ONE (14:29)
[2017-06-19] MEDS ORDERED: SUCCINYLCHOLINE CHLORIDE 20 MG/ML 10 ML VIAL IV ONE (14:29)
[2017-06-19] MEDS ORDERED: ROCURONIUM BROMIDE 10 MG/ML 5 ML VIAL IV ONE (14:29)
--- NOTE | 2017-06-19 14:59 | GI REPORT ---
Procedure Date: 06/19/2017 2:28 PM Procedure: Upper GI endoscopy Indications: Epigastric abdominal pain Medicines: General Anesthesia Complications: No immediate complications. Estimated blood loss: Minimal. Estimated Blood Loss: Estimated blood loss was minimal. Procedure: Pre-Anesthesia Assessment: - Prior to the procedure, a History and Physical was performed, and patient medications, allergies and sensitivities were reviewed. The patient's tolerance of previous anesthesia was reviewed. - ASA Grade Assessment: II - A patient with mild systemic disease. - The anesthesia plan was to use general anesthesia. - Pre-procedure physical examination revealed no contraindications to sedation. - After reviewing the risks and benefits, the patient was deemed in satisfactory condition to undergo the procedure. - Immediately prior to administration of medications, the patient was re-assessed for adequacy to receive sedatives. - The heart rate, respiratory rate, oxygen saturations, blood pressure, adequacy of pulmonary ventilation, and response to care were monitored throughout the procedure. - The physical status of the patient was re-assessed after the procedure. - The risks and benefits of the procedure and the sedation options and risks were discussed with the patient. All questions were answered and informed consent was obtained. - Patient identification and proposed procedure were verified prior to the procedure by the physician, the nurse and the supervisor display fabrication. The procedure was verified in the procedure room. After obtaining informed consent, the endoscope was passed under direct vision. Throughout the procedure, the patient's blood pressure, pulse, and oxygen saturations were monitored continuously. The scope was introduced through the mouth, and advanced to the third part of duodenum. The upper GI endoscopy was accomplished without difficulty. The patient tolerated the procedure well. Findings: The examined esophagus was normal. The Z-line was regular and was found 35 cm from the incisors. The entire examined stomach was normal. The examined duodenum was normal. Impression: - Normal esophagus. - Z-line regular, 35 cm from the incisors. - Normal stomach. - Normal examined duodenum. - No specimens collected. Recommendation: - Perform an upper endoscopic ultrasound (UEUS) today. Ayaan Goss D.O. Ayaan Goss DO 06/19/2017 2:58:38 PM This report has been signed electronically. Note Initiated On: 06/19/2017 2:28 PM I attest to the content of the Intraoperative Record and orders documented therein, exceptions below
--- NOTE | 2017-06-19 15:41 | GI REPORT ---
Procedure Date: 06/19/2017 3:14 PM Procedure: ERCP Indications: Abdominal pain of suspected biliary origin, Abnormal endoscopic ultrasound of the biliary system, Jaundice Medicines: General Anesthesia, Indocin 100 mg [place] Complications: No immediate complications. Estimated blood loss: Minimal. Estimated Blood Loss: Estimated blood loss was minimal. Procedure: Pre-Anesthesia Assessment: - Prior to the procedure, a History and Physical was performed, and patient medications, allergies and sensitivities were reviewed. The patient's tolerance of previous anesthesia was reviewed. - The risks and benefits of the procedure and the sedation options and risks were discussed with the patient. All questions were answered and informed consent was obtained. - Patient identification and proposed procedure were verified prior to the procedure by the physician, the nurse and the tool supervisor. The procedure was verified in the procedure room. - Pre-procedure physical examination revealed no contraindications to sedation. - ASA Grade Assessment: III - A patient with severe systemic disease. - After reviewing the risks and benefits, the patient was deemed in satisfactory condition to undergo the procedure. - The anesthesia plan was to use general anesthesia. - Immediately prior to administration of medications, the patient was re-assessed for adequacy to receive sedatives. - The heart rate, respiratory rate, oxygen saturations, blood pressure, adequacy of pulmonary ventilation, and response to care were monitored throughout the procedure. - The physical status of the patient was re-assessed after the procedure. After obtaining informed consent, the scope was passed under direct vision. Throughout the procedure, the patient's blood pressure, pulse, and oxygen saturations were monitored continuously. The Scope was introduced through the mouth, and advanced to the duodenum and used to inject contrast into the bile duct. The ERCP was accomplished without difficulty. The patient tolerated the procedure well. Findings: A software tools developer film of the abdomen was obtained. Surgical clips, consistent with previous cholecystectomy, were seen in the area of the right upper quadrant of the abdomen. The esophagus was successfully intubated under direct vision without detailed examination of the pharynx, larynx, and associated structures, and upper GI tract. The upper GI tract was grossly normal. The major papilla was normal. The bile duct was deeply cannulated with the short-nosed traction sphincterotome (Omni 35) and 0.035 in Acrobat guidewire during the initial cannulation attempt. Contrast was injected. I personally interpreted the bile duct images. Contrast extended to the hepatic ducts. A cholecystectomy had been performed. The biliary orifice was stenotic. This appeared benign. The lower third of the main bile duct contained filling defect(s) thought to be a stone and sludge. Biliary sphincterotomy was made with a monofilament short-tip traction sphincterotome using ERBE electrocautery. There was no post-sphincterotomy bleeding. To discover objects, the biliary tree was swept with a 8.5 mm to15 mm balloon starting at the distal common bile duct working up to the bifurcation over several sweeps. Sludge was swept from the duct. Three small green pigmented stones were removed. No stones remained on occlusion cholangiogram. The endoscope was withdrawn from the patient. The total fluoroscopy exposure time was 1 minute and 41 seconds. Impression: - The major papilla appeared normal. - The patient has had a cholecystectomy. - Biliary papillary stenosis, benign. - A filling defect consistent with a stone and sludge was seen on the cholangiogram. - A sphincterotomy was performed. - The biliary tree was swept. - Choledocholithiasis was found. Complete removal was accomplished by biliary sphincterotomy and balloon extraction. Recommendation: - Avoid aspirin and nonsteroidal anti-inflammatory medicines for 1 week. - Clear liquid diet today. - Observe patient's clinical course following today's ERCP with therapeutic intervention. - Repeat CMP in am to continue Liver enzyme trend. - Repeat ERCP PRN for retreatment. Ayaan Goss D.O. Ayaan Goss, 06/19/2017 3:40:59 PM This report has been signed electronically. Note Initiated On: 06/19/2017 3:14 PM I attest to the content of the Intraoperative Record and orders documented therein, exceptions below
--- NOTE | 2017-06-19 15:45 | GI REPORT ---
Procedure Date: 06/19/2017 2:58 PM Procedure: Upper EUS Indications: Abnormal liver function test, Suspected choledocholithiasis, Abdominal pain in the right upper quadrant Medicines: General Anesthesia Complications: No immediate complications. Estimated blood loss: Minimal. Estimated Blood Loss: Estimated blood loss was minimal. Procedure: Pre-Anesthesia Assessment: - Prior to the procedure, a History and Physical was performed, and patient medications, allergies and sensitivities were reviewed. The patient's tolerance of previous anesthesia was reviewed. - The risks and benefits of the procedure and the sedation options and risks were discussed with the patient. All questions were answered and informed consent was obtained. - Patient identification and proposed procedure were verified prior to the procedure by the physician, the nurse and the product support analyst. The procedure was verified in the procedure room. - Pre-procedure physical examination revealed no contraindications to sedation. - ASA Grade Assessment: III - A patient with severe systemic disease. - After reviewing the risks and benefits, the patient was deemed in satisfactory condition to undergo the procedure. - After reviewing the risks and benefits, the patient was deemed in satisfactory condition to undergo the procedure. - The anesthesia plan was to use general anesthesia. - Immediately prior to administration of medications, the patient was re-assessed for adequacy to receive sedatives. - The heart rate, respiratory rate, oxygen saturations, blood pressure, adequacy of pulmonary ventilation, and response to care were monitored throughout the procedure. - The physical status of the patient was re-assessed after the procedure. After obtaining informed consent, the endoscope was passed under direct vision. Throughout the procedure, the patient's blood pressure, pulse, and oxygen saturations were monitored continuously. The Endosonoscope was introduced through the mouth, and advanced to the second part of duodenum. The upper EUS was accomplished without difficulty. The patient tolerated the procedure well. Findings: Endosonographic Finding : There was no sign of significant endosonographic abnormality in the ampulla. No masses were identified. Evidence of a previous cholecystectomy was identified endosonographically. One stone was visualized endosonographically in the lower third of the main bile duct. The stone measured 5 mm in greatest dimension. It was hyperechoic and characterized by shadowing. The CBD was 6 mm in diameter. There was diffuse abnormal echotexture in the entire examined liver. This was characterized by a hyperechoic appearance. There was no sign of significant endosonographic abnormality in the entire pancreas. No masses. No lymph nodes were seen during endosonographic examination in the celiac region (level 20). Two benign lymph nodes were visualized in the leighton hepatis region. The largest measured 12 mm by 18 mm in maximal cross-sectional diameter. The nodes were triangular, hypoechoic and had poorly defined margins. There was no sign of significant endosonographic abnormality in the left adrenal gland. No adrenal gland enlargement was identified. Impression: - Normal ampulla. - Evidence of a cholecystectomy. - One stone was visualized endosonographically in the lower third of the main bile duct. - Fatty infiltration of the liver. - Normal pancreas. - Two benign lymph nodes were visualized in the leighton hepatis region. Recommendation: - Perform an ERCP today. Ayaan Goss D.O. Ayaan Goss DO 06/19/2017 3:44:02 PM This report has been signed electronically. Note Initiated On: 06/19/2017 2:58 PM I attest to the content of the Intraoperative Record and orders documented therein, exceptions below
--- NOTE | 2017-06-19 15:49 | [facility] Post Operative Brief Note ---
Immediate Operative Summary Operative Date Jun 19, 2017. Pre-Operative Diagnosis Elevated Liver Tests Post-Operative Diagnosis Gallstones Procedure(s) Performed Endoscopic Ultrasonography; Endoscopic Retrograde Cholangiopancreatogram Surgeon Dr. Ayaan Goss Leacher Surgeon(s) None Estimated Blood Loss 0ml Findings Normal EGD Gallstones seen on EUS / ERCP in the CBD Specimens None Drains None Anesthesia General Complication(s) None Disposition Recovery Room / PACU
--- NOTE | 2017-06-19 15:50 | DIAGNOSTIC IMAGING REPORT ---
ERCP BILIARY DUCTAL CLINICAL HISTORY: right upper quadrant abdominal pain. COMPARISON STUDY: MRCP 06/19/2017. FLUOROSCOPY TIME: 1 minute and 41 seconds. 17 images submitted. FINDINGS: There is an endoscope at the second portion of the duodenum. The ampulla is cannulated and contrast was injected into the common bile duct. The common bile duct appears to be normal in course and caliber. A balloon sweep was performed. Prior cholecystectomy. IMPRESSION: Fluoroscopy provided for ERCP. Electronically signed by: Douglas Mathis M.D. 06/19/2017 3:49 PM Dictated Date/Time: 06/19/2017 3:47 PM
[2017-06-19] MEDS ORDERED: DEXAMETHASONE SOD INJ 4 MG/ML VIAL ONE (15:56)
[2017-06-19] MEDS ORDERED: ONDANSETRON INJ 2 MG/ML 2 ML VIAL ONE (15:56)
[2017-06-19] MEDS ORDERED: ATROPINE SULFATE 0.1 MG/ML 5ML SYR IV PRN (16:15)
[2017-06-19] MEDS ORDERED: FENTANYL CITRATE INJ 50 MCG/1 ML 2 ML VIAL IV PRN (16:15)
[2017-06-19] MEDS ORDERED: LABETALOL HCL IV 5 MG/ML 20ML IV PRN (16:15)
[2017-06-19] MEDS ORDERED: EpHEDrine SULFATE INJ 50 MG/ML AMP IV PRN (16:15)
[2017-06-19] MEDS ORDERED: HYDROmorphone INJ 1 MG/ML SYR IV PRN (16:15)
[2017-06-19] MEDS ORDERED: ONDANSETRON INJ 2 MG/ML 2 ML VIAL IV PRN (16:15)
[2017-06-19] MEDS ORDERED: MEPERIDINE HCL 25 MG/ML CARP IV PRN (16:15)
--- NOTE | 2017-06-19 16:32 | Anesthesiology Progress Note ---
Anesthesia Post Op Note Date & Time Jun 19, 2017 at 16:31 Vital Signs Pain Intensity: 0 Vital Signs Past 12 Hours Date Time Temp Pulse Resp B/P (MAP) Pulse Ox O2 Delivery O2 Flow Rate FiO2 06/19/17 16:25 154/84 06/19/17 16:23 64 14 98 06/19/17 16:23 64 14 06/19/17 16:20 153/84 06/19/17 16:18 68 13 06/19/17 16:18 68 13 98 06/19/17 16:15 144/86 06/19/17 16:13 66 13 06/19/17 16:13 65 13 98 06/19/17 16:10 160/83 06/19/17 16:08 71 14 98 06/19/17 16:08 69 14 06/19/17 16:06 36.7 72 20 144/86 (107) 99 Mask 2 06/19/17 16:05 173/87 06/19/17 16:03 63 16 06/19/17 16:03 64 16 97 06/19/17 16:00 166/79 06/19/17 15:58 71 14 06/19/17 15:58 76 14 100 06/19/17 15:57 67 15 06/19/17 15:57 66 15 100 06/19/17 15:55 158/80 06/19/17 15:52 76 21 99 06/19/17 15:52 76 21 06/19/17 15:50 171/80 06/19/17 15:47 81 19 163/88 100 06/19/17 15:47 80 19 06/19/17 15:47 36.5 80 18 163/88 (99) 100 Mask 10 06/19/17 08:00 Room Air 06/19/17 07:19 36.6 59 20 106/71 (83) 96 Room Air Notes Mental Status: alert / awake / arousable, participated in evaluation Pt Amnestic to Procedure: Yes Nausea / Vomiting: adequately controlled Pain: adequately controlled Airway Patency, RR, SpO2: stable & adequate BP & HR: stable & adequate Hydration State: stable & adequate Anesthetic Complications: no major complications apparent
[2017-06-19 16:41] VITALS: BP 149/83; PULSE 70; TEMP 36.7; O2SAT 93
[2017-06-19] MEDS ORDERED: LACTATED RINGER'S 1000ML 1,000 ML IV SCH (16:45)
--- NOTE | 2017-06-19 16:46 | Progress Note ---
Internal Med Progress Note Date of Service: Jun 19, 2017. Provider Documentation: SUBJECTIVE: Seen and examined at bedside. Had Endoscopic Ultrasonography; ERCP today Reports heartburn Denies chest pain, SOB Family at bedside. OBJECTIVE: Vital Signs-as noted below Exam: General Appearance:Obese, no apparent distress Head: normocephalic, Atraumatic Eyes: normal inspection, EOMI, PERRL Neck: supple, Trachea midline Respiratory/Chest: Normal breath sounds, CTA Cardiovascular: S1, S2, No murmur Abdomen/GI:Soft, Non tender, Bowel sounds present Extremities/Musculoskelatal:normal inspection, no edema Neurologic/Psych:AAOX3, grossly no focal neurological deficits Skin:normal color,warm Lab data as noted below. ASSESSMENT & PLAN: Choledocholithiasis S/P biliary sphincterotomy and balloon extraction PO D # o Abdominal USD:hepatic steatosis Appreciate GI help Pain control IV fluids Clear liquid diet Monitor LFTs Hepatitis screen pending Lipase:wnl Avoid ASA, NSAIDs for 1 week Alcohol abuse disorder ETOH level normal monitor for DTs no problems with withdrawal in the past Continue thiamine, Folic acid GERD Started on PPI DVT Px: SCDs DISPOSITION: Plan to discharge home when stable PROCEDURES: Endoscopic USD: Impression: - Normal ampulla. - Evidence of a cholecystectomy. - One stone was visualized endosonographically in the lower third of the main bile duct. - Fatty infiltration of the liver. - Normal pancreas. - Two benign lymph nodes were visualized in the leighton hepatis region. Recommendation: - Perform an ERCP today. ERCP: Impression: - The major papilla appeared normal. - The patient has had a cholecystectomy. - Biliary papillary stenosis, benign. - A filling defect consistent with a stone and sludge was seen on the cholangiogram. - A sphincterotomy was performed. - The biliary tree was swept. - Choledocholithiasis was found. Complete removal was accomplished by biliary sphincterotomy and balloon extraction. Recommendation: - Avoid aspirin and nonsteroidal anti-inflammatory medicines for 1 week. - Clear liquid diet today. - Observe patient's clinical course following today's ERCP with therapeutic intervention. - Repeat CMP in am to continue Liver enzyme trend. - Repeat ERCP PRN for retreatment. Vital Signs: Date Time Temp Pulse Resp B/P (MAP) Pulse Ox O2 Delivery O2 Flow Rate FiO2 06/19/17 17:19 36.8 74 16 138/76 (96) 93 06/19/17 16:52 36.7 70 16 141/92 (108) 95 Room Air 06/19/17 16:41 36.7 70 18 149/83 (105) 93 Nasal Cannula 2.0 06/19/17 16:25 154/84 06/19/17 16:23 64 14 98 06/19/17 16:23 64 14 06/19/17 16:20 153/84 06/19/17 16:18 68 13 06/19/17 16:18 68 13 98 06/19/17 16:15 144/86 06/19/17 16:13 66 13 06/19/17 16:13 65 13 98 06/19/17 16:10 160/83 06/19/17 16:08 71 14 98 06/19/17 16:08 69 14 06/19/17 16:06 36.7 72 20 144/86 (107) 99 Mask 2 06/19/17 16:05 173/87 06/19/17 16:03 63 16 06/19/17 16:03 64 16 97 06/19/17 16:00 166/79 06/19/17 15:58 71 14 06/19/17 15:58 76 14 100 06/19/17 15:57 67 15 06/19/17 15:57 66 15 100 06/19/17 15:55 158/80 06/19/17 15:52 76 21 99 06/19/17 15:52 76 21 06/19/17 15:50 171/80 06/19/17 15:47 81 19 163/88 100 06/19/17 15:47 80 19 06/19/17 15:47 36.5 80 18 163/88 (99) 100 Mask 10 06/19/17 08:00 Room Air 06/19/17 07:19 36.6 59 20 106/71 (83) 96 Room Air 06/19/17 01:13 36.9 66 18 120/75 (90) 95 Room Air 06/19/17 00:00 Room Air Lab Results: Results Past 24 Hours Test 06/19/17 09:04 Range/Units Total Bilirubin 6.8 0.2-1 mg/dl Direct Bilirubin 3.6 0-0.2 mg/dl Aspartate Amino Transf (AST/SGOT) 733 15-37 U/L Alanine Aminotransferase (ALT/SGPT) 1142 12-78 U/L Alkaline Phosphatase 130 45-117 U/L Total Protein 6.8 6.4-8.2 gm/dl Albumin 3.5 3.4-5.0 gm/dl Folate 13.75 >5.38 ng/mL
[2017-06-19 16:52] VITALS: BP 141/92; PULSE 70; TEMP 36.7; O2SAT 95
[2017-06-19 17:19] VITALS: BP 138/76; PULSE 74; TEMP 36.8; O2SAT 93
[2017-06-19] MEDS ORDERED: PANTOprazole SOD 40 MG TAB PO ONE (17:30)
[2017-06-19] MEDS: LACTATED RINGER'S 1000ML 1,000 ML IV SCH (18:30)
[2017-06-19 18:31] VITALS: BP 127/73; PULSE 83; O2SAT 93
[2017-06-20] VITALS: O2SAT 93
[2017-06-20 00:06] VITALS: BP 133/72; PULSE 81; TEMP 36.8; O2SAT 94
[2017-06-20] MEDS: LACTATED RINGER'S 1000ML 1,000 ML IV SCH (04:35)
[2017-06-20 07:13] VITALS: BP 141/83; PULSE 58; TEMP 36.3; O2SAT 100
[2017-06-20 08:07] LABS: BUN/CREATININE RATIO 10.3 (10-20); CALCIUM 8.8 mg/dl (8.5-10.1); CREATININE 0.78 mg/dl (0.60-1.40)
[2017-06-20 08:08] LABS: ALB/GLOB RATIO 0.9 (0.9-2)
[2017-06-20 08:25] LABS: BASO % 0.1 %; BASO ABS # 0.01 K/uL (0-0.2); COMPLETE YES; HEMATOCRIT 42.4 % (42-52); IG% 0.5 %; LYMPH % 10.3 %; LYMPH ABS # 0.97 K/uL (1.2-3.4); MEAN CELL VOLUME 86.4 fL (80-100); MEAN CORPUSCULAR HEMOGLOBIN 28.3 pg (25-34); MEAN CORPUSCULAR HGB CONC 32.8 g/dl (32-36); MEAN PLATELET VOLUME 11.1 fL (7.4-10.4); MONO % 5.8 %; NEUT % 83.3 %; PLATELET COUNT 211 K/uL (130-400); RED BLOOD COUNT 4.91 M/uL (4.7-6.1); WHITE BLOOD COUNT 9.43 K/uL (4.8-10.8)
[2017-06-20] MEDS ORDERED: PANTOprazole SOD 40 MG TAB PO SCH (09:00)
--- NOTE | 2017-06-20 11:09 | Gastroenterology Progress Note ---
Progress Note Date of Service: Jun 20, 2017 Subjective Pt evaluation today including: conversation w/ patient, conversation w/ family No complaints, feels great, up sitting in chair at bedside Medications Current Inpatient Medications Medications (Trade) Dose Ordered Sig/Huyen Route Start Time Stop Time Status Last Admin Dose Admin Ondansetron HCl (Zofran Inj) 4 mg Q6H PRN IV 06/18/17 14:00 07/18/17 13:59 06/19/17 22:36 4 MG Morphine Sulfate (MoRPHine SULFATE INJ) 4 mg Q4H PRN IV 06/18/17 14:15 07/02/17 14:14 06/19/17 22:37 4 MG Lactated Ringer's 1,000 ml @ 100 mls/hr Q10H IV 06/19/17 17:45 07/19/17 17:44 06/20/17 04:35 100 MLS/HR Pantoprazole Sodium (Protonix Tab) 40 mg QAM PO 06/20/17 09:00 07/20/17 08:59 Objective Vital Signs Date Time Temp Pulse Resp B/P (MAP) Pulse Ox O2 Delivery O2 Flow Rate FiO2 06/20/17 08:00 Room Air 06/20/17 07:13 36.3 58 18 141/83 (102) 100 Room Air 06/20/17 00:06 36.8 81 16 133/72 (92) 94 Room Air 06/20/17 00:00 93 Room Air 06/19/17 18:31 83 18 127/73 (91) 93 Room Air 06/19/17 17:19 36.8 74 16 138/76 (96) 93 06/19/17 16:52 36.7 70 16 141/92 (108) 95 Room Air 06/19/17 16:41 36.7 70 18 149/83 (105) 93 Nasal Cannula 2.0 06/19/17 16:25 154/84 06/19/17 16:23 64 14 98 06/19/17 16:23 64 14 06/19/17 16:20 153/84 06/19/17 16:18 68 13 06/19/17 16:18 68 13 98 06/19/17 16:15 144/86 06/19/17 16:13 66 13 06/19/17 16:13 65 13 98 06/19/17 16:10 160/83 06/19/17 16:08 71 14 98 06/19/17 16:08 69 14 06/19/17 16:06 36.7 72 20 144/86 (107) 99 Mask 2 06/19/17 16:05 173/87 06/19/17 16:03 63 16 06/19/17 16:03 64 16 97 06/19/17 16:00 Room Air 06/19/17 16:00 166/79 06/19/17 15:58 71 14 06/19/17 15:58 76 14 100 06/19/17 15:57 67 15 06/19/17 15:57 66 15 100 06/19/17 15:55 158/80 06/19/17 15:52 76 21 99 06/19/17 15:52 76 21 06/19/17 15:50 171/80 06/19/17 15:47 81 19 163/88 100 06/19/17 15:47 80 19 06/19/17 15:47 36.5 80 18 163/88 (99) 100 Mask 10 Physical Exam General Appearance: WD/WN, no apparent distress ENT: normal ENT inspection Neck: supple Respiratory/Chest: chest non-tender, lungs clear Cardiovascular: regular rate, rhythm, no edema Abdomen: normal bowel sounds Extremities: normal range of motion Neurologic/Psych: surgical garment assembler II-XII nml as tested Laboratory Results Last 24 Hours Test 06/20/17 07:08 White Blood Count 9.43 K/uL Red Blood Count 4.91 M/uL Hemoglobin 13.9 g/dL Hematocrit 42.4 % Mean Corpuscular Volume 86.4 fL Mean Corpuscular Hemoglobin 28.3 pg Mean Corpuscular Hemoglobin Concent 32.8 g/dl Platelet Count 211 K/uL Mean Platelet Volume 11.1 fL Neutrophils (%) (Auto) 83.3 % Lymphocytes (%) (Auto) 10.3 % Monocytes (%) (Auto) 5.8 % Eosinophils (%) (Auto) 0.0 % Basophils (%) (Auto) 0.1 % Neutrophils # (Auto) 7.85 K/uL Lymphocytes # (Auto) 0.97 K/uL Monocytes # (Auto) 0.55 K/uL Eosinophils # (Auto) 0.00 K/uL Basophils # (Auto) 0.01 K/uL RDW Standard Deviation 44.1 fL RDW Coefficient of Variation 14.1 % Immature Granulocyte % (Auto) 0.5 % Immature Granulocyte # (Auto) 0.05 K/uL Sodium Level 139 mmol/L Potassium Level 4.0 mmol/L Chloride Level 106 mmol/L Carbon Dioxide Level 26 mmol/L Anion Gap 7.0 mmol/L Blood Urea Nitrogen 8 mg/dl Creatinine 0.78 mg/dl Est Creatinine Clear Calc Drug Dose 208.0 ml/min Estimated GFR () 135.5 Estimated GFR (Non- 116.9 BUN/Creatinine Ratio 10.3 Random Glucose 113 mg/dl Calcium Level 8.8 mg/dl Total Bilirubin 2.3 mg/dl Aspartate Amino Transf (AST/SGOT) 277 U/L Alanine Aminotransferase (ALT/SGPT) 859 U/L Alkaline Phosphatase 127 U/L Total Protein 7.0 gm/dl Albumin 3.4 gm/dl Globulin 3.6 gm/dl Albumin/Globulin Ratio 0.9 Assessment and Plan 37 yo presenting with elevated liver enzymes and abdominal pain with biliary obstruction from choledocholithiasis -Doing well post ERCP and clearance of bile duct -No signs of complication -Ok for low fat diet, if tolerates can be d/c'd with hospital follow up this week
--- NOTE | 2017-06-20 14:22 | Progress Note ---
Internal Med Progress Note Date of Service: Jun 20, 2017. Provider Documentation: SUBJECTIVE: Seen and examined at bedside. Had Endoscopic Ultrasonography; ERCP yesterday Denies abdominal pain No new complaints Tolerated diet Eager to get discharged Denies chest pain, SOB Family at bedside. OBJECTIVE: Vital Signs-as noted below Exam: General Appearance:Obese, no apparent distress Head: normocephalic, Atraumatic Eyes: normal inspection, EOMI, PERRL Neck: supple, Trachea midline Respiratory/Chest: Normal breath sounds, CTA Cardiovascular: S1, S2, No murmur Abdomen/GI:Soft, Non tender, Bowel sounds present Extremities/Musculoskelatal:normal inspection, no edema Neurologic/Psych:AAOX3, grossly no focal neurological deficits Skin:normal color,warm Lab data as noted below. ASSESSMENT & PLAN: Choledocholithiasis S/P biliary sphincterotomy and balloon extraction POD # 1 Abdominal USD:hepatic steatosis Appreciate GI help Pain control S/P IV fluids Tolerating low fat diet LFTs much improved Hepatitis screen pending Lipase:wnl Avoid ASA, NSAIDs for 1 week Needs follow up with GI as outpatient Alcohol abuse disorder ETOH level normal monitor for DTs no problems with withdrawal in the past Continue thiamine, Folic acid GERD Started on PPI DVT Px: SCDs DISPOSITION: Plan to discharge home today Follow up with Dr. Strauss on 06/25/17 at 10:25AM Follow up with your banana expert in 1 week as advised Seek immediate medical attention if your symptoms reoccur or worsen PROCEDURES: Endoscopic USD: Impression: - Normal ampulla. - Evidence of a cholecystectomy. - One stone was visualized endosonographically in the lower third of the main bile duct. - Fatty infiltration of the liver. - Normal pancreas. - Two benign lymph nodes were visualized in the leighton hepatis region. Recommendation: - Perform an ERCP today. ERCP: Impression: - The major papilla appeared normal. - The patient has had a cholecystectomy. - Biliary papillary stenosis, benign. - A filling defect consistent with a stone and sludge was seen on the cholangiogram. - A sphincterotomy was performed. - The biliary tree was swept. - Choledocholithiasis was found. Complete removal was accomplished by biliary sphincterotomy and balloon extraction. Recommendation: - Avoid aspirin and nonsteroidal anti-inflammatory medicines for 1 week. - Clear liquid diet today. - Observe patient's clinical course following today's ERCP with therapeutic intervention. - Repeat CMP in am to continue Liver enzyme trend. - Repeat ERCP PRN for retreatment. Vital Signs: Date Time Temp Pulse Resp B/P (MAP) Pulse Ox O2 Delivery O2 Flow Rate FiO2 06/20/17 08:00 Room Air 06/20/17 07:13 36.3 58 18 141/83 (102) 100 Room Air 06/20/17 00:06 36.8 81 16 133/72 (92) 94 Room Air 06/20/17 00:00 93 Room Air 06/19/17 18:31 83 18 127/73 (91) 93 Room Air 06/19/17 17:19 36.8 74 16 138/76 (96) 93 06/19/17 16:52 36.7 70 16 141/92 (108) 95 Room Air 06/19/17 16:41 36.7 70 18 149/83 (105) 93 Nasal Cannula 2.0 06/19/17 16:25 154/84 06/19/17 16:23 64 14 98 06/19/17 16:23 64 14 06/19/17 16:20 153/84 06/19/17 16:18 68 13 06/19/17 16:18 68 13 98 06/19/17 16:15 144/86 06/19/17 16:13 66 13 06/19/17 16:13 65 13 98 06/19/17 16:10 160/83 06/19/17 16:08 71 14 98 06/19/17 16:08 69 14 06/19/17 16:06 36.7 72 20 144/86 (107) 99 Mask 2 06/19/17 16:05 173/87 06/19/17 16:03 63 16 06/19/17 16:03 64 16 97 06/19/17 16:00 Room Air 06/19/17 16:00 166/79 06/19/17 15:58 71 14 06/19/17 15:58 76 14 100 06/19/17 15:57 67 15 06/19/17 15:57 66 15 100 06/19/17 15:55 158/80 06/19/17 15:52 76 21 99 06/19/17 15:52 76 21 06/19/17 15:50 171/80 06/19/17 15:47 81 19 163/88 100 06/19/17 15:47 80 19 06/19/17 15:47 36.5 80 18 163/88 (99) 100 Mask 10 Lab Results: Results Past 24 Hours Test 06/20/17 07:08 Range/Units White Blood Count 9.43 4.8-10.8 K/uL Red Blood Count 4.91 4.7-6.1 M/uL Hemoglobin 13.9 14.0-18.0 g/dL Hematocrit 42.4 42-52 % Mean Corpuscular Volume 86.4 80-100 fL Mean Corpuscular Hemoglobin 28.3 25-34 pg Mean Corpuscular Hemoglobin Concent 32.8 32-36 g/dl Platelet Count 211 130-400 K/uL Mean Platelet Volume 11.1 7.4-10.4 fL Neutrophils (%) (Auto) 83.3 % Lymphocytes (%) (Auto) 10.3 % Monocytes (%) (Auto) 5.8 % Eosinophils (%) (Auto) 0.0 % Basophils (%) (Auto) 0.1 % Neutrophils # (Auto) 7.85 1.4-6.5 K/uL Lymphocytes # (Auto) 0.97 1.2-3.4 K/uL Monocytes # (Auto) 0.55 0.11-0.59 K/uL Eosinophils # (Auto) 0.00 0-0.5 K/uL Basophils # (Auto) 0.01 0-0.2 K/uL RDW Standard Deviation 44.1 36.4-46.3 fL RDW Coefficient of Variation 14.1 11.5-14.5 % Immature Granulocyte % (Auto) 0.5 % Immature Granulocyte # (Auto) 0.05 0.00-0.02 K/uL Sodium Level 139 136-145 mmol/L Potassium Level 4.0 3.5-5.1 mmol/L Chloride Level 106 98-107 mmol/L Carbon Dioxide Level 26 21-32 mmol/L Anion Gap 7.0 3-11 mmol/L Blood Urea Nitrogen 8 7-18 mg/dl Creatinine 0.78 0.60-1.40 mg/dl Est Creatinine Clear Calc Drug Dose 208.0 ml/min Estimated GFR () 135.5 Estimated GFR (Non- 116.9 BUN/Creatinine Ratio 10.3 10-20 Random Glucose 113 70-99 mg/dl Calcium Level 8.8 8.5-10.1 mg/dl Total Bilirubin 2.3 0.2-1 mg/dl Aspartate Amino Transf (AST/SGOT) 277 15-37 U/L Alanine Aminotransferase (ALT/SGPT) 859 12-78 U/L Alkaline Phosphatase 127 45-117 U/L Total Protein 7.0 6.4-8.2 gm/dl Albumin 3.4 3.4-5.0 gm/dl Globulin 3.6 2.5-4.0 gm/dl Albumin/Globulin Ratio 0.9 0.9-2
--- NOTE | 2017-06-20 14:36 | Discharge Instructions ---
Discharge Instructions Date of Service Jun 20, 2017. Admission Reason for Admission: ELEVATED LFTs Discharge Discharge Diagnosis / Problem: Choledocholithiasis Discharge Goals Goal(s): Decrease discomfort, Improve function Activity Recommendations Activity Limitations: resume your previous activity Exercise/Sports Limitations: as tolerated . Instructions / Follow-Up Instructions / Follow-Up Follow up with Dr. Strauss on 06/25/17 at 10:25AM Follow up with your welder boilermaker in 1 week as advised Seek immediate medical attention if your symptoms reoccur or worsen Avoid Aspirin, NSAIDs for 1 week as advised Current Hospital Diet Patient's current hospital diet: Low Fat Diet Discharge Diet Recommended Diet: Low Fiber Diet Procedures Procedures Performed: Endoscopic Ultrasonography; Endoscopic Retrograde Cholangiopancreatogram Pending Studies Studies pending at discharge: no Medical Emergencies . Who to Call and When: Medical Emergencies: If at any time you feel your situation is an emergency, please call 911 immediately. . Non-Emergent Contact Non-Emergency issues call your: Primary Care Provider, Radiology Technologist Call Non-Emergent contact if: you have a fever, your pain is not controlled, your pain is worsening, your pain is unusual for you, you have any medication questions Seek immediate medical attention if your symptoms reoccur or worsen . . "Provider Documentation" section prepared by See Smith. . VTE Core Measure Inpt VTE Proph given/why not?: SCD's
[2017-06-20] MEDS ORDERED: TRAM-453 PO (14:38)
--- NOTE | 2017-06-20 14:39 | Discharge Summary ---
Discharge Summary Date of Service Jun 20, 2017. Discharge Summary Admission Date: Jun 18, 2017 at 13:56 Discharge Date: Jun 20, 2017 Discharge Disposition: Home Principal Diagnosis: Choledocholithiasis Procedures: Liver USD: No evidence for portal vein thrombosis. Endoscopic USD: Impression: - Normal ampulla. - Evidence of a cholecystectomy. - One stone was visualized endosonographically in the lower third of the main bile duct. - Fatty infiltration of the liver. - Normal pancreas. - Two benign lymph nodes were visualized in the leighton hepatis region. Recommendation: - Perform an ERCP today. ERCP: Impression: - The major papilla appeared normal. - The patient has had a cholecystectomy. - Biliary papillary stenosis, benign. - A filling defect consistent with a stone and sludge was seen on the cholangiogram. - A sphincterotomy was performed. - The biliary tree was swept. - Choledocholithiasis was found. Complete removal was accomplished by biliary sphincterotomy and balloon extraction. Recommendation: - Avoid aspirin and nonsteroidal anti-inflammatory medicines for 1 week. - Clear liquid diet today. - Observe patient's clinical course following today's ERCP with therapeutic intervention. - Repeat CMP in am to continue Liver enzyme trend. - Repeat ERCP PRN for retreatment. Consultations: GI Pending Studies/Follow-Up: Follow up with Dr. Strauss on 06/25/17 at 10:25AM Follow up with your emergency communications officer in 1 week as advised Seek immediate medical attention if your symptoms reoccur or worsen Avoid Aspirin, NSAIDs for 1 week as advised Medication Reconciliation New Medications: Tramadol Hcl (Ultram) 50 Mg Tab 1 TAB PO Q6H PRN for Pain for 3 Days, #10 TAB Admission Information HPI (per Admitting provider): 37 year old male who presents to the ER with RUQ pain. Patient reports pain come on suddenly last evening. He reports the pain as located in the RUQ and describes it as an ache. He took some OTC antacids last night and got minimal relief. He reports a normal bowel movement yesterday. He denies nausea, vomiting , or diarrhea. No fevers or chills. He feels as though his abdomen is a little more distended and he has lower extremity edema. The abdominal distention makes him feel a little short of breath with exertion. No chest pain. Patient does drink alcohol. He reports heavy alcohol use for 10 years, cut back for about 1 year, and for the past 2 weeks has been having 2-3 drinks per night. He reports having a girlfriend several years ago that was Hep C positive. He denies any recent travel or sick contacts. He denies lightheadedness, dizziness, diaphoresis, or syncopal events. He reports his urine has been much darker in color today. No dysuria. In the ER, patient was found to have elevated LFTs (t. bili 4.0, AST and ALT > 1,000, and normal alk phos). RUQ US unremarkable. Patient was treated with IVF, GI cocktail, and IV Dilaudid. Physical Exam (per Admitting): General Appearance: no apparent distress Head: normocephalic Eyes: normal inspection, sclerae normal ENT: hearing grossly normal Neck: supple, no JVD Respiratory/Chest: lungs clear, normal breath sounds, no respiratory distress Cardiovascular: regular rate, rhythm, normal peripheral pulses, + pertinent finding (trace edema BLLE) Abdomen/GI: normal bowel sounds, soft, + pertinent finding (reports RUQ pain however not worse with palpation) Extremities/Musculoskelatal: normal inspection, no calf tenderness Neurologic/Psych: no motor/sensory deficits, alert, normal mood/affect, oriented x 3 Skin: normal color, warm/dry Hospital Course Choledocholithiasis S/P biliary sphincterotomy and balloon extraction POD # 1 Abdominal USD:hepatic steatosis Appreciate GI help Pain control S/P IV fluids Tolerating low fat diet LFTs much improved Hepatitis screen pending Lipase:wnl Avoid ASA, NSAIDs for 1 week Needs follow up with GI as outpatient Alcohol abuse disorder ETOH level normal monitor for DTs no problems with withdrawal in the past Continue thiamine, Folic acid GERD Started on PPI DVT Px: SCDs DISPOSITION: Plan to discharge home today Follow up with Dr. Strauss on 06/25/17 at 10:25AM Follow up with your emergency communications officer in 1 week as advised Seek immediate medical attention if your symptoms reoccur or worsen PROCEDURES: Endoscopic USD: Impression: - Normal ampulla. - Evidence of a cholecystectomy. - One stone was visualized endosonographically in the lower third of the main bile duct. - Fatty infiltration of the liver. - Normal pancreas. - Two benign lymph nodes were visualized in the leighton hepatis region. Recommendation: - Perform an ERCP today. ERCP: Impression: - The major papilla appeared normal. - The patient has had a cholecystectomy. - Biliary papillary stenosis, benign. - A filling defect consistent with a stone and sludge was seen on the cholangiogram. - A sphincterotomy was performed. - The biliary tree was swept. - Choledocholithiasis was found. Complete removal was accomplished by biliary sphincterotomy and balloon extraction. Recommendation: - Avoid aspirin and nonsteroidal anti-inflammatory medicines for 1 week. - Clear liquid diet today. - Observe patient's clinical course following today's ERCP with therapeutic intervention. - Repeat CMP in am to continue Liver enzyme trend. - Repeat ERCP PRN for retreatment. Total time spent on discharge = 35 minutes This includes examination of the patient, discharge planning, medication reconciliation, and communication with other providers. Discharge Instructions Discharge Instructions Date of Service Jun 20, 2017. Admission Reason for Admission: ELEVATED LFTs Discharge Discharge Diagnosis / Problem: Choledocholithiasis Discharge Goals Goal(s): Decrease discomfort, Improve function Activity Recommendations Activity Limitations: resume your previous activity Exercise/Sports Limitations: as tolerated . Instructions / Follow-Up Instructions / Follow-Up Follow up with Dr. Strauss on 06/25/17 at 10:25AM Follow up with your emergency communications officer in 1 week as advised Seek immediate medical attention if your symptoms reoccur or worsen Avoid Aspirin, NSAIDs for 1 week as advised Current Hospital Diet Patient's current hospital diet: Low Fat Diet Discharge Diet Recommended Diet: Low Fiber Diet Procedures Procedures Performed: Endoscopic Ultrasonography; Endoscopic Retrograde Cholangiopancreatogram Pending Studies Studies pending at discharge: no Medical Emergencies . Who to Call and When: Medical Emergencies: If at any time you feel your situation is an emergency, please call 911 immediately. . Non-Emergent Contact Non-Emergency issues call your: Primary Care Provider, Labeling Associate Call Non-Emergent contact if: you have a fever, your pain is not controlled, your pain is worsening, your pain is unusual for you, you have any medication questions Seek immediate medical attention if your symptoms reoccur or worsen . . "Provider Documentation" section prepared by See Smith. . VTE Core Measure Inpt VTE Proph given/why not?: SCD's
[2017-06-20 14:44] VITALS: BP 141/83; PULSE 58; TEMP 36.3; O2SAT 100
[2017-06-20 14:47] VITALS: BP 130/80; PULSE 69; TEMP 36.6; O2SAT 96
[2017-06-23 13:29] LABS: CYTOMEGALOVIRUS IGG AB <0.60 U/ML; EBV EARLY ANTIGEN AB <9.00 U/ML
== END 2017-06-20 15:05 | disposition home or self-care (01) | DRG 445 ==
LOC: C.EDB 10:34 → C.MS2W 13:56 → ENRESERV 15:38
PROVIDERS: ADMIT Internal Medicine; ATTEND Internal Medicine
PROC: 0F798ZZ Dilation of Common Bile Duct, Via Natural or Artificial Opening Endoscopic (ICD-10-PCS; principal; 2017-06-19 07:15)
PROC: BF11YZZ Fluoroscopy of Biliary and Pancreatic Ducts using Other Contrast (ICD-10-PCS; 2017-06-19 07:15)
DX: K80.51 Calculus of bile duct without cholangitis or cholecystitis with obstruction (principal); Z68.43 Body mass index [BMI] 50.0-59.9, adult; E66.01 Morbid (severe) obesity due to excess calories; F43.10 Post-traumatic stress disorder, unspecified; Z83.3 Family history of diabetes mellitus; Z87.891 Personal history of nicotine dependence; F10.20 Alcohol dependence, uncomplicated; K76.0 Fatty (change of) liver, not elsewhere classified; K21.9 Gastro-esophageal reflux disease without esophagitis